=== PATIENT | female | born 1955 | race Caucasian/White ===

== ENCOUNTER 2022-02-14 13:30 | Outpatient (CLI) | payer MEDICARE, SELFPAY ==
--- NOTE | 2022-02-14 13:45 | MR_ITS ---
[facility] [address] [facility] [address] Phone:?[phone] Fax:?[phone] Referring Physician Information: Yara Gonzalez [address] [facility] [address] Phone:?[phone] Fax:?[phone] Patient:Aram Chandler D.O.B:?1955 Sex:?Female Phone:?[phone] [facility] MRN:?[id number] Exam Date:?02/14/2022 ? EXAM: MRI OF THE LEFT SHOULDER CLINICAL INFORMATION: The patient is a 66-year-old with left shoulder pain. Evaluate for subscapularis injury. PRIOR SURGERY: None reported. COMPARISON STUDIES: There are no prior studies available for comparison. TECHNICAL INFORMATION: Using a 1.5T MR scanner and a localizing shoulder surface coil: 3.0 mm?coronal obliques: PD, T2, STIR 3.0 mm?sagittal obliques: PD, T2 3.0 mm?axials: PD, T2 FINDINGS: Articular/Extraarticular collections: Effusion: Mild. Subacromial/subdeltoid: Mild fluid is seen within the subacromial/subdeltoid bursa, in keeping with mild bursitis. Subcoracoid: No evidence for bursitis. Osseous structures: Proximal humerus: No evidence for bony injury to the proximal humerus can be seen. There is no evidence for greater tuberosity fracture. No Hill-Sachs or reverse Hill-Sachs deformity is seen. Glenoid: No acute bony abnormality of the glenoid fossa or glenoid neck can be seen. Acromioclavicular joint: Mild acromioclavicular joint arthrosis is present. Coracoacromial arch: Acromion morphology: Type II. No evidence for os acromiale. Acromiohumeral space: Moderately narrowed. Coracohumeral space: Within normal limits. Rotator cuff and deltoid: Supraspinatus: Mild to moderate changes of supraspinatus tendinosis can be seen. There is no evidence for full or partial-thickness tearing. No atrophic changes of the supraspinatus muscle belly are identified. Infraspinatus: No evidence for tendinosis, tearing, or associated muscle belly atrophy. Teres minor: No evidence for tendinosis, tearing, or associated muscle belly atrophy. Subscapularis: Mild to moderate subscapularis tendinosis can be seen. There is no evidence for full or partial-thickness tearing. No atrophic changes of the subscapularis muscle belly are noted. Deltoid: No evidence for strain or tearing. Biceps tendon: The intra-articular and biceps sulcus portions of the biceps tendon are normal. There is no evidence for rupture, dislocation, or subluxation. Glenohumeral joint and labrum: Articular Cartilage: Chondromalacia and chondral thinning along the articular surfaces of the glenohumeral articulation can be seen. No definite osteoarthritic changes are present. Labrum: Degeneration, blunting, and irregularity of the glenoid labrum can be seen without definite areas of more well-defined tearing. Capsular Soft Tissues: No definite capsular abnormalities of the glenohumeral joint are seen. No evidence for capsular tearing is present and there are no MR signs of adhesive capsulitis. CONCLUSION: 1. Mild to moderate supraspinatus and subscapularis tendinosis. No full or partial-thickness rotator cuff tearing is seen. 2. Mild acromioclavicular joint arthrosis with moderate narrowing of the acromiohumeral space. 3. Chondromalacia and chondral thinning along the articular surfaces of the glenohumeral articulation without definite osteoarthritic change. 4. Degeneration, blunting, and irregularity of the glenoid labrum. 5. The long head of the biceps tendon appears intact. 6. Mild glenohumeral joint effusion and mild subacromial/subdeltoid bursitis. AEC Electronically signed on 02/14/2022 4:47:00 PM by Erik Khan M.D.
== END 2022-02-14 13:31 | disposition home or self-care (01) ==
LOC: MRI 13:31
PROVIDERS: PCP Family Medicine; Visit Provider Physician Assistant Surgical
DX: M25.512 Pain in left shoulder (principal); M94.212 Chondromalacia, left shoulder; M19.012 Primary osteoarthritis, left shoulder; M25.412 Effusion, left shoulder
CPT/HCPCS: 73221

== ENCOUNTER 2022-04-07 10:30 | Outpatient (RCR) | payer MEDICARE, SELFPAY ==
--- NOTE | 2022-02-26 15:35 | PT.OPEX ---
PT [place] Outpatient Eval PT [facility] Outpatient Eval Start: 02/26/22 14:39 Freq: Status: Active Protocol: Document 02/26/22 14:39 NMK (Rec: 02/26/22 15:31 NMK [id number]) E-signed By Hao Haley DPT Physical Therapy Outpatient Evaluation Insurance Information Recert Due Date 05/29/22 Insurance Name [employer] Medical Diagnosis Unspecified disorder of synovium and tendon, left shoulder Treating Diagnosis L shoulder pain; Decreased L shoulder ROM; L shoulder weakness Referring Bill Prince PA-C Subjective Subjective 66 y.o. female pt present with primary c/o L shoulder pain that seemed to have started back in August after carrying her grand child for long distance. Pain seemed to have improved a little bit but came back in January when once again she was doing some heavy lifting. She reports pain with reaching with outstretched arm as well driving. She has difficulty lifting things as well. She does report she feels the shoulder is slowly getting better. Often times she has help lifting things, particularly her grand kids. Sleeping was difficult but has been getting easier. She did get an MRI which revealed tendinopathy of her supraspinatus and subscapularis muscles. Her goal is to improve her pain and ROM, and to be able to lift her grandchildren again without pain. PMH: Cancer Current Work Status Retired Precautions Treatment Precautions/Contraindications h/o Cancer Therapy Limitations/Systems Review Not Limited Objective Other/Pertinent Objective MMT: L/R Shoulder flexion: 4*/5 Shoulder abduction: 3-*/5 Shoulder 90-90 ER: 3*/5 Shoulder 90-90 IR: 4*/5 Shoulder ER: 4+/5 Shoulder IR: 4/5 *Indicates pain with resisted testing ROM Shoulder flexion L: 135 degrees R: 150+ Shoulder abduction L: 77 degrees R: 150 + Shoulder IR: L: Sacral level R: T10 Shoulder ER: L: Inferior occiput R: T7 Palpation: TTP present over subscapularis tendon Special tests Full can: + on L Empty can: + on L External rotation resistance test: + on L Neer's: + on L Assessment Assessment/Impression Findings are consistent with a diagnosis of L mechanical shoulder pain with signs and symptoms consistent with RC tendinopathy. Impairments related to current health condition include decreased shoulder ROM, shoulder pain, and shoulder weakness. These impairments contribute to decreased ability to perform ADL's involving reaching and lifting, and reduced ability to care and play for her grandchildren due to being unable to lift them secondary to shoulder pain. Examination of body systems including structures, functions, activity limitations and participation restrictions have been addressed. Skilled PT is recommended in order to improve the patient's mobility and restore their baseline level of function. Within session patient tolerating isometric strengthening of her cuff along with scapular strengthening without any reports of increased pain. Primary Functional Limitations Reaching, lifting Plan of Care Rehabilitation Potential Good Physical Therapy Goals Prior to discharge from PT... 1. Pt will demonstrate shoulder active range of motion >150 degrees in involved upper extremity in order to show functional ability to reach into cabinets at home 2. Pt will demonstrate ability to lift 15 pounds from floor during therapy with good body mechanics and report less 2/10 shoulder pain when doing so to show ability to lift and play with her grandchildren 3. Pt will demonstrate at least 150 degrees of shoulder abduction ROM in her L shoulder and report less than 3/10 pain throughout the arc 4. Pt will be independent in HEP in order to show ability to self manage condition after discharge Coordination/Communication With Referral Source Treatment Plan/Direct Interventions Joint Mobilization,Manual Therapy,Therapeutic Exercises Frequency/Duration 1-2x per week for 8-12 weeks Patient Will Be Discharged From Therapy Completion of LTG(s),Skills Plateau,Independent w/HEP, Independently Progressing Evaluation Billing Untimed Code Treatment Minutes 20 Complexity Moderate Certification Information Initial Certification Date 02/26/22 Ending Certification Date 05/29/22 Physician Comment/Change Comment or Changes Physician NPI Number #
== END 2023-01-22 23:59 | disposition home or self-care (01) ==
PROVIDERS: PCP Family Medicine; Visit Provider Physician Assistant Surgical
DX: M67.912 Unspecified disorder of synovium and tendon, left shoulder (principal); Z51.89 Encounter for other specified aftercare
CPT/HCPCS: 97110; 97140; 97162

== ENCOUNTER 2022-12-02 10:16 | Outpatient (CLI) | payer MEDICARE, SELFPAY | END 2022-12-02 10:17 | disposition home or self-care (01) | LOC: NFLDREF 10:17 | PROVIDERS: PCP Family Medicine; Visit Provider Family Medicine | DX: N39.0 Urinary tract infection, site not specified (principal) | CPT/HCPCS: 87086 ==

== ENCOUNTER 2023-02-25 11:00 | Outpatient (RCR) | payer MEDICARE, SELFPAY | END 2023-06-25 23:59 | disposition home or self-care (01) | PROVIDERS: PCP Family Medicine; Visit Provider Nurse Practitioner Family | DX: N94.89 Other specified conditions associated with female genital organs and menstrual cycle (principal); R27.8 Other lack of coordination; N94.2 Vaginismus; Z51.89 Encounter for other specified aftercare | CPT/HCPCS: 97110; 97112; 97140; 97161; 97535 ==

== ENCOUNTER 2023-03-01 09:35 | Emergency (ER) | payer MEDICARE, SELFPAY ==
[2023-03-01 09:55] VITALS: BP 195/103; PULSE 73; RESP 18; TEMP 36; O2SAT 100; BMI 20.7
--- NOTE | 2023-03-01 10:35 | CRLHL7_ITS ---
For Patients: As a result of the Century Cures Act, medical imaging exams and procedure reports are released immediately into your electronic medical record. You may view this report before your referring provider. If you have questions, please contact your health care provider. INDICATION: Headache, hypertension TECHNIQUE: CT of the head without contrast. Coronal and sagittal reformats. Bone and soft tissue algorithms. COMPARISON: 06/30/19 CT FINDINGS: No acute intracranial hemorrhage or extraaxial collection. No evidence of acute cortical infarction. No mass effect or midline shift. Mild generalized cerebral and cerebellar parenchymal volume loss. Mild regions of decreased attenuation within the periventricular and subcortical white matter of both cerebral hemispheres most likely reflects chronic microvascular ischemic disease and age related change in this patient. Vascular calcifications within the carotid siphons. Orbital contents are normal. No calvarial fractures. No lytic or sclerotic osseous lesions within the calvarium or skull base. Scalp and other imaged soft tissue structures are normal. Mastoid air cells are clear. IMPRESSION: No acute intracranial abnormality. Please note that all CT scans at this facility use dose modulation, iterative reconstruction, and/or weight-based dosing when appropriate to reduce radiation dose to as low as reasonably achievable. Dictated by Jairo Guerrero MD @ 03/01/2023 12:00:28 PM (Electronically Signed)
--- NOTE | 2023-03-01 10:38 | ED_ITS ---
HPI - General Adult General Chief complaint: Hypertension Stated complaint: aneurysm and Hypertension Time Seen by Provider: 03/01/23 10:14 History of Present Illness HPI narrative: Patient is a 59 year white female who was seen recently for not feeling well, elevated blood pressure and a headache. 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 There was no Vet large vessel occlusion. The patient has been quite anxious as her blood pressure was elevated and she was concerned this might cause rupture of the aneurysm. She presents to the ED here for treatment. She was to get in contact with Neurology early in the week. She has a blood pressure log that she has capped and she is in the 150-160 range systolic for quite some time. She reports she is very anxious about the situation and has been troubled with anxiety. She reports this started when she was out doing some clipping for a couple of hours in her yd and then felt like ?her blood pressure was elevated ?. Patient denies chest pain, or fevers, or shortness of breath. Related Data Home Medications Medication Instructions Recorded Confirmed Lactobacillus acidophilus 10 mg PO QDAY 02/07/22 05/09/22 (Acidophilus capsule) cholecalciferol (vitamin D3) 25 25 mcg PO QDAY 02/07/22 05/09/22 mcg (1,000 unit) capsule (Vitamin D3) vitamin B complex 1 tab PO QDAY 02/07/22 05/09/22 Previous Rx's Medication Instructions Recorded metoprolol succinate 25 mg 25 mg PO DAILY #14 tabs 03/01/23 tablet,extended release 24 hr Allergies Allergy/AdvReac Type Severity Reaction Status Date / Time No Known Allergies Allergy Unknown Verified 12/02/22 10:57 Review of Systems Status of ROS: Reports: 6 or more systems reviewed and unremarkable except as noted in History and below [facility] Medical History History of tenosynovitis (04/2017) ?Z87.39 - Personal history of other diseases of the musculoskeletal system and connective tissue (ICD-10) History of malignant neoplasm of cervix (02/2013) ?Z85.41 - Personal history of malignant neoplasm of cervix uteri (ICD-10) Surgical History History of breast augmentation (09/17/94) ?Z98.82 - Breast implant status (ICD-10) History of hysterectomy ?Z90.710 - Acquired absence of both cervix and uterus (ICD-10) Family History Mother Pancreatic cancer, Onset Age: 69 Father Stomach cancer, Onset Age: 47 Sister Breast cancer Maternal Grandmother Stroke Social History Narrative: , 2 kids, paraprofessional, non-smoker, no EtOH Smoking Status: Never smoker Do you use any of these nicotine containing products: None Second hand tobacco smoke exposure: No How often do you have a drink containing alcohol: never AUDIT-C Alcohol total score: 0 Non-prescribed substance use: denies use Are you now , , , , never or living with a partner: Social isolation score (0-1 are the most socially isolated patients): 1 Exam Narrative: Exam Narrative: Objective: Patient's vital signs show blood pressure 195/103 pulse 73 and regular resp rate 18 unlabored afebrile O2 sat 100% In general mildly anxious no apparent distress HEENT unremarkable pupils react to light, extra movements intact, no facial asymmetry Neurologic is grossly nonfocal Pulses regular Const: Vital Signs, click to edit/add: Vital Signs - 24 hr 03/01/23 09:55 03/01/23 11:44 03/01/23 11:45 Temperature 96.8 F L Pulse Rate 48 L 45 L Pulse Rate [Right Pulse Oximeter] 73 Respiratory Rate 18 Blood Pressure 145/106 H Blood Pressure [Ri ght Upper Arm] 195/103 H Pulse Oximetry 100 97 97 Oxygen Delivery Me thod Room Air 03/01/23 12:00 03/01/23 12:02 Temperature Pulse Rate 53 L 49 L Pulse Rate [Right Pulse Oximeter] Respiratory Rate Blood Pressure 135/77 Blood Pressure [Ri ght Upper Arm] Pulse Oximetry 96 96 Oxygen Delivery Me thod Course Vital Signs Vital signs: Initial Vital Signs Temperature 96.8 F L 03/01/23 09:55 Temperature Source Temporal Artery Scan 03/01/23 09:55 Pulse Rate 73 03/01/23 09:55 Respiratory Rate 18 03/01/23 09:55 Blood Pressure 195/103 H 03/01/23 09:55 Blood Pressure Mean 133 H 03/01/23 09:55 Blood Pressure Position Sitting 03/01/23 09:55 Pulse Oximetry 100 03/01/23 09:55 Oxygen Delivery Method Room Air 03/01/23 09:55 Vital Signs Temperature 96.8 F L 03/01/23 09:55 Pulse Rate 73 03/01/23 09:55 Respiratory Rate 18 03/01/23 09:55 Blood Pressure 195/103 H 03/01/23 09:55 Pulse Oximetry 100 03/01/23 09:55 Oxygen Delivery Method Room Air 03/01/23 09:55 Temperature 96.8 F L 03/01/23 09:55 Pulse Rate 49 L 03/01/23 12:02 Respiratory Rate 18 03/01/23 09:55 Blood Pressure 135/77 03/01/23 12:02 Pulse Oximetry 96 03/01/23 12:02 Oxygen Delivery Method Room Air 03/01/23 09:55 Medical Decision Making MDM Narrative Medical decision making narrative: Patient is a 59-year-old white female with a history of exertional strain likely to her neck probable tension headache. Patient had a noted 2.5 mm left superior hypo foot seal artery aneurysm. Given her blood pressure and tension type headache I think could be appropriate to treat her with some Reglan Benadryl Ativan and IV fluid. We will get a repeat head CT to make sure she has no bleeding or other abnormality noted now. She has had this headache now for few days and it seems like it started when she was doing some yd work and sounds more like a tension type headache that radiates from her neck area to occipital region. Does not have any focal neurologic complaints. I think giving her so mething for blood pressure such as metoprolol given her blood pressure is elevated be appropriate, and follow-up with neurology as scheduled 1st tests are normal. She had her comfortable this plan. Lab Data Labs: Lab Results 03/01/23 Range/Units 10:40 WBC 6.30 (4.50-11.00) K/uL RBC 5.21 H (4.00-5.20) m/uL Hgb 9.5 L (12.0-16.0) gm/dL Hct 32.0 L (33.0-51.0) % MCV 61 L (80-100) fL MCH 18 L (26-34) pg MCHC 30 L (32-36) gm/dL RDW Coeff of Erin 16.6 H (11.5-15.5) % Plt Count 350 (140-440) K/uL Neut % (Auto) 67.1 (42.0-72.0) % Lymph % (Auto) 25.7 (20-44) % [place] % (Auto) 5.1 (0.0-11.0) % Eos % (Auto) 1.0 (0.0-7.0) % Baso % (Auto) 0.6 (0.0-3.0) % Neut # (Auto) 4.23 (1.7-7.0) K/uL Lymph # (Auto) 1.62 (0.90-2.90) K/uL [place] # (Auto) 0.30 (0.00-0.90) K/UL Eos # (Auto) 0.06 (0.00-0.50) K/uL Baso # (Auto) 0.04 (0.00-0.30) K/uL Abs Immat Gran (auto) 0.03 (0.00-0.30) K/uL Imm/Tot Granulo (auto) 0.5 % Diff Slide Review Acceptable Review (Acceptable) Sodium 144 (135-149) mmol/L Potassium 3.6 (3.6-5.1) mmol/L Chloride 109 (96-114) mmol/L Carbon Dioxide 27 (20-32) mmol/L Anion Gap 8 (7-15) mEq/L BUN 11 (7-30) mg/dL Creatinine 0.8 (0.5-1.5) mg/dL Estimated Creat Clear 42.59 Estimated GFR 80 ml/min Glucose 90 (60-115) mg/dL Calcium 8.9 (8.4-10.6) mg/dL C-Reactive Protein < 0.5 L (0.5-1.0) mg/dL Discharge Plan Discharge Clinical Impression: Elevated blood pressure reading, Headache Patient Disposition: Home w/ Parent or Adult Condition: Improved Additional Instructions: May use metoprolol daily starting tomorrow, light activity, recheck with regular doctor in 2-3 days for repeat blood pressure and pulse check. Recommend follow- up with Neurology as you have planned. Return as needed Activity Level: Light activity Discharge Diet: Heart Healthy (2 gm sodium, low fat) Prescriptions: New metoprolol succinate 25 mg tablet extended release 24 hr 25 mg PO DAILY Qty: 14 2RF No Action cholecalciferol (vitamin D3) [Vitamin D3] 25 mcg (1,000 unit) capsule 25 mcg PO QDAY vitamin B complex Tablet 1 tab PO QDAY Acidophilus Capsule 10 mg PO QDAY Follow Up/Referrals: Jiaro De Los Santos MD [Primary Care Provider] - Stand Alone Forms: [facility] Info Instructions
[2023-03-01] MEDS: 0.9 % SODIUM CHLORIDE 1000 ml 1,000 ML 6000 ML IV (10:54)
[2023-03-01] MEDS: LORazepam 2 MG/ML inj 0.5 MG IVP (10:58)
[2023-03-01 11:00] LABS: Basophils Absolute Auto 0.04 K/uL (0.00-0.30); Basophils Percent Auto 0.6 % (0.0-3.0); Eosinophils Absolute Auto 0.06 K/uL (0.00-0.50); Hemoglobin* 9.5 gm/dL (12.0-16.0); Immature Granulocytes Abs Auto 0.03 K/uL (0.00-0.30); Immature Granulocytes Pct Auto 0.5 %; Lymphocytes Absolute Auto 1.62 K/uL (0.90-2.90); Lymphocytes Percent Auto 25.7 % (20-44); Mean Corpuscular HGB Conc 30 gm/dL (32-36); Mean Corpuscular Hemoglobin 18 pg (26-34); Mean Corpuscular Volume 61 fL (80-100); Monocytes Percent Auto 5.1 % (0.0-11.0); Neutrophils Absolute Auto 4.23 K/uL (1.7-7.0); Neutrophils Percent Auto 67.1 % (42.0-72.0); Platelet Count* 350 K/uL (140-440); RDW Coefficient of Variation % 16.6 % (11.5-15.5); Red Blood Count 5.21 m/uL (4.00-5.20)
[2023-03-01] MEDS: diphenhydrAMINE 50 MG/ML inj 25 MG IVP (11:00)
[2023-03-01] MEDS: METOCLOPRAMIDE HCL 10 MG in 0.9 % SODIUM CHLORIDE 100 ml 100 ML 306 MG IV (11:05)
[2023-03-01] MEDS: METOPROLOL TARTRATE 25 MG TABLET PO (11:05)
[2023-03-01 11:13] LABS: Slide Review Acceptable Review (Acceptable); Slide Review Reflex Yes
[2023-03-01 11:16] LABS: Chloride* 109 mmol/L (96-114); Potassium* 3.6 mmol/L (3.6-5.1); Sodium* 144 mmol/L (135-149)
[2023-03-01 11:19] LABS: Creatinine* 0.8 mg/dL (0.5-1.5); Est. Creatinine Clearance* 42.59; Estimated Glomerular Filt Rate 80 ml/min
[2023-03-01 11:20] LABS: Anion Gap 8 mEq/L (7-15); Blood Urea Nitrogen* 11 mg/dL (7-30); Calcium* 8.9 mg/dL (8.4-10.6); Carbon Dioxide* 27 mmol/L (20-32); Glucose* 90 mg/dL (60-115)
[2023-03-01 11:33] LABS: C Reactive Protein* < 0.5 mg/dL (0.5-1.0)
[2023-03-01 11:44] VITALS: BP 145/106; PULSE 48; O2SAT 97
[2023-03-01 11:45] VITALS: PULSE 45; O2SAT 97
[2023-03-01 12:00] VITALS: PULSE 53; O2SAT 96
[2023-03-01 12:02] VITALS: BP 135/77; PULSE 49; O2SAT 96
== END 2023-03-01 12:32 | disposition home or self-care (01) ==
PROVIDERS: Emergency Provider Family Medicine; PCP Family Medicine
DX: R51.9 Headache, unspecified (principal); R03.0 Elevated blood-pressure reading, without diagnosis of hypertension
CPT/HCPCS: 36415; 70450; 80048; 85025; 86140; 96361; 96374; 96375; 99284; 99285; A9270; J1200; J2060; J2765; J7030

== ENCOUNTER 2023-08-11 09:01 | Outpatient (CLI) | payer MEDICARE, SELFPAY | END 2023-08-11 09:02 | disposition home or self-care (01) | LOC: NFLDREF 08-12 11:29 | PROVIDERS: PCP Family Medicine; Referring Provider Family Medicine; Visit Provider Registered Nurse | DX: R30.0 Dysuria (principal) | CPT/HCPCS: 87086 ==

== ENCOUNTER 2024-04-16 18:35 | Emergency (ER) | payer MEDICARE, SELFPAY ==
[2024-04-16 18:39] VITALS: BP 145/78; PULSE 69; RESP 18; TEMP 36.5; O2SAT 100; BMI 18.7
--- NOTE | 2024-04-16 18:52 | ED_ITS ---
HPI - General Adult General Time Seen by Provider: 18:52 Date Seen: 04/16/24 Chief complaint: Back Injury/Pain Stated complaint: fall - back pain Time Seen by Provider: 04/16/24 18:37 Source: patient and RN notes reviewed Mode of arrival: ambulatory Limitations: no limitations History of Present Illness HPI narrative: This 6-year-old female is coming in with complaint of left back pain after injury as well as some chest patent on her flight home. She flew home from the [facility] today; while in airport at the [facility], her suitcase got caught and she fell into the turn stand or the suitcase, not completely sure but she hit her left posterolateral chest wall, points to the left lower rib area on her back. There is some visible red betancourt as well as some bruising in the area. It hurts on the side in it hurts to take a deep breath. On the flight home from the [facility] she did note some right-sided chest pain that went into her right shoulder. When she fell, her chest wall hurts significantly, felt as if someone was stabbing her in the chest when she felt lightheaded at the time. No fevers or chills. No noted prior history of cardiac disease or blood clotting disorders. She came off a cruise around 8 in the morning, thinks this incident happened around 9:00 a.m. where she fell. She is taken 1000 mg of Tylenol this morning, another 500 mg during the flight. She just proceeded to come from [facility] to the ER here on arrival back home. She does live in [place]. There is no known family history of blood clots or cardiac disease that she remembers. Related Data Home Medications ?Medication ?Instructions ?Recorded ?Confirmed Lactobacillus acidophilus 10 mg PO QDAY 02/07/22 04/16/24 (Acidophilus capsule) lisinopril 40 mg tablet 40 mg PO DAILY 08/11/23 04/16/24 amlodipine 5 mg tablet 5 mg PO DAILY 04/16/24 04/16/24 Allergies Allergy/AdvReac Type Severity Reaction Status Date / Time No Known Allergies Allergy Unknown Verified 04/16/24 18:51 Review of Systems Status of ROS: Reports: 6 or more systems reviewed and unremarkable except as noted in History and below [facility] Medical History History of tenosynovitis (04/2017) ?Z87.39 - Personal history of other diseases of the musculoskeletal system and connective tissue (ICD-10) History of malignant neoplasm of 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/2013) ?Z85.41 - Personal history of malignant neoplasm of cervix uteri (ICD-10) Surgical History History of breast augmentation (09/17/94) ?Z98.82 - Breast implant status (ICD-10) History of hysterectomy ?Z90.710 - Acquired absence of both cervix and uterus (ICD-10) Family History Mother Pancreatic cancer, Onset Age: 69 Father Stomach cancer, Onset Age: 47 Sister Breast cancer Maternal Grandmother Stroke Social History Narrative: , 2 kids, paraprofessional, non-smoker, no EtOH Smoking Status: Never smoker Do you use any of these nicotine containing products: None Second hand tobacco smoke exposure: No How often do you have a drink containing alcohol: never AUDIT-C Alcohol total score: 0 Non-prescribed substance use: denies use Are you now , , , , never or living with a partner: Social isolation score (0-1 are the most socially isolated patients): 1 Exam Const: Vital Signs, click to edit/add: Vital Signs - 24 hr 04/16/24 18:39 04/16/24 20:00 04/16/24 20:49 Temperature 97.7 F 97.7 F Pulse Rate [Pulse Oximeter] 69 74 Respiratory Rate 18 18 Blood Pressure [Ri ght Upper Arm] 145/78 H 132/74 Pulse Oximetry 100 97 97 Oxygen Delivery Me thod Room Air Room Air This 69-year-old female is alert, interactive, no apparent distress. She standing in the room when I come in. Her gait is normal but movement about the torso definitely seems to cause pain. She points to her left lower flank/lower rib area where the pain is. There is a visible erythematous trudi on her left mid posterior lower rib area with some surrounding ecchymosis. It is tender on palpation but there is no step-off. Face atraumatic, sclera clear, pupils equal round, symmetrical facial function. Able to speak in complete sentences. Lungs are clear, good air entry, no wheezing or crackles, no tachypnea. CV regular rate and rhythm, no murmur, normal S1-S2, no S3-S4. Abdomen is soft, nondistended, surprisingly some very high epigastric tenderness but no rebound or guarding, no underlying masses or organomegaly noted. No lower extremity edema. Documenting provider has reviewed patient's vital signs: yes Course Course ED Course: She has left posterolateral chest wall trauma along the posterior ribs. She also is complaining of some chest pain while flying, did fly to the [facility] a week ago and returned today. Her chest pain could be posttraumatic but she has also had a flight. I think imaging with chest CT is most appropriate, if we are imaging with chest CT will do chest CT PE protocol from the start. She is not hypoxic, hemodynamically stable, doubt internal bleeding at this time. Will also consider cardiac disease with episode of chest pain in flight. Will look at full complement of labs including troponin as well as an EKG. She will be monitored while in the ED. did discuss further pain management with patient, did not seem very keen on this, did offer single dose of Toradol which is nonnarcotic which she did want to try. Ordered 15 mg IVP. Reevaluation(s) Time of Reevaluation #1: 21:09 Reevaluation #1: Reviewed with patient that her CT is not showing any acute traumatic change. She does have a nonobstructing left kidney stone which we did review, provided her a copy of her results. Reviewed that her sodium was mildly low 130, would recommend recheck of this within the next 1-2 weeks. Will provider handout on hyponatremia as well. She has contusion in her left posterior chest wall but no evidence of any rib fractures, no traumatic change. Her troponin and her chest CT are not showing any evidence of cardiac involvement with ischemic disease or any pulmonary embolism. Vital Signs Vital signs: Initial Vital Signs Temperature 97.7 F 04/16/24 18:39 Temperature Source Temporal Artery Scan 04/16/24 18:39 Pulse Rate 69 04/16/24 18:39 Respiratory Rate 18 04/16/24 18:39 Blood Pressure 145/78 H 04/16/24 18:39 Blood Pressure Mean 100 04/16/24 18:39 Blood Pressure Position Sitting 04/16/24 18:39 Pulse Oximetry 100 04/16/24 18:39 Oxygen Delivery Method Room Air 04/16/24 18:39 Vital Signs Temperature 97.7 F 04/16/24 18:39 Pulse Rate 69 04/16/24 18:39 Respiratory Rate 18 04/16/24 18:39 Blood Pressure 145/78 H 04/16/24 18:39 Pulse Oximetry 100 04/16/24 18:39 Oxygen Delivery Method Room Air 04/16/24 18:39 Temperature 97.7 F 04/16/24 20:49 Pulse Rate 74 04/16/24 20:49 Respiratory Rate 18 04/16/24 20:49 Blood Pressure 132/74 04/16/24 20:49 Pulse Oximetry 97 04/16/24 20:49 Oxygen Delivery Method Room Air 04/16/24 20:49 Medications Administered Medications: Discontinued Medications Generic Name Dose Route Start Last Admin Trade Name Freq PRN Reason Stop Dose Admin Ketorolac Tromethamine 15 mg 04/16/24 19:17 04/16/24 19:25 Ketorolac 15 Mg/Ml Inj IVP 04/16/24 19:18 15 mg ONCE ONE Administration Medical Decision Making Lab Data Lab results reviewed: Yes I reviewed the patient's lab results Labs: Lab Results 04/16/24 04/16/24 Range/Units 19:05 19:17 WBC 8.03 (4.50-11.00) K/uL RBC 4.67 (4.00-5.20) m/uL Hgb 8.6 L (12.0-16.0) gm/dL Hct 27.8 L (33.0-51.0) % MCV 60 L (80-100) fL MCH 18 L (26-34) pg MCHC 31 L (32-36) gm/dL RDW Coeff of Erin 15.7 H (11.5-15.5) % Plt Count 280 (140-440) K/uL Neut % (Auto) 74.3 H (42.0-72.0) % Lymph % (Auto) 20.3 (20-44) % Rich % (Auto) 4.6 (0.0-11.0) % Eos % (Auto) 0.4 (0.0-7.0) % Baso % (Auto) 0.2 (0.0-3.0) % Neut # (Auto) 6.00 (1.7-7.0) K/uL Lymph # (Auto) 1.63 (0.90-2.90) K/uL Rich # (Auto) 0.40 (0.00-0.90) K/UL Eos # (Auto) 0.03 (0.00-0.50) K/uL Baso # (Auto) 0.02 (0.00-0.30) K/uL Abs Immat Gran (auto) 0.02 (0.00-0.30) K/uL Imm/Tot Granulo (auto) 0.2 % D-Dimer Quant (PE/DVT) 1.64 H (0.00-0.50) ug/ml Sodium 130 L (135-149) mmol/L Potassium 4.3 (3.6-5.1) mmol/L Chloride 97 (96-114) mmol/L Carbon Dioxide 20 (20-32) mmol/L Anion Gap 13 (7-15) mEq/L BUN 27 (7-30) mg/dL Creatinine 1.0 (0.5-1.5) mg/dL Estimated Creat Clear 38.23 Estimated GFR 61 ml/min Glucose 105 (60-115) mg/dL Calcium 9.4 (8.4-10.6) mg/dL Total Bilirubin 0.7 (0.1-1.5) mg/dL AST 23 (12-35) U/L ALT 13 (4-35) U/L Alkaline Phosphatase 63 (40-150) U/L Troponin I < 0.01 L (0.01-0.04) ng/mL C-Reactive Protein < 0.5 L (0.5-1.0) mg/dL NT-Pro-B Natriuret Pep 66 pg/mL Total Protein 7.7 (6.0-8.3) g/dL Albumin 4.8 (3.3-5.0) g/dL Lipase 112 (23-300) U/L Lab Acknowledgement Test Added POC Creatinine 1.1 (0.6-1.3) mg/dl POC Troponin I 0.00 L (0.01-0.04) ng/ml Imaging Data CT scan - chest: Attestation: I have reviewed the pertinent imaging results. Radiologist's impression: Patient: WILBUR PHAM Facility:?[facility] Patient ID:?[id number] Site Patient ID:?[id number]. Site :?[id number] Study:?CT-Chest Angio W/95CC [id number] 7:50:57 PM Ordering Physician:?Elizabeth Etienne Final Report: Indication: Chest pain after flight Technique: CTA of the chest following 95 mL Isovue 370 IV contrast. Comparison: None Findings: Pulmonary arteries: No pulmonary embolism appreciated. Lungs: No consolidation. No effusion. No pneumothorax. Trace basilar atelectasis and/or scarring. Mediastinum: No acute abnormality appreciated. Lymph nodes: No gross lymphadenopathy. Upper abdomen: Nonobstructing punctate left renal stone. Soft tissues: No acute abnormality appreciated. Bones: No acute abnormality appreciated. Impression: 1. No pulmonary embolism or other acute abnormality appreciated to account for patient`s reported symptoms. 2. Nonobstructing punctate left renal stone. Please note that all CT scans at this facility use dose modulation, iterative reconstruction, and/or weight-based dosing when appropriate to reduce radiation dose to as low as reasonably achievable. Dictated by Shai Navas MD @ 04/16/2024 8:41:32 PM (Electronic Signature) ECG Data Attestation: I personally reviewed and interpreted this ECG as follows: (Normal sinus rhythm, 66 beats per minute. Nonspecific T-wave abnormality but no acute ST segment changes. No infarct noted.) Prior ECG tracings: not available for review Discharge Plan Discharge Clinical Impression: Hyponatremia Contusion of back wall of thorax Qualifiers: Encounter type: initial encounter Thoracic wall location detail: left Qualified Code(s): S20.222A - Contusion of left back wall of thorax, initial encounter Chest pain Qualifiers: Chest pain type: unspecified Qualified Code(s): R07.9 - Chest pain, unspecified Patient Disposition: Home, Self-Care Condition: Stable Instructions: Chest Pain (ED), Hyponatremia (ED), Chest Wall Pain (ED), Rib Contusion (ED) Additional Instructions: Recommend follow up in clinic within the next couple of weeks, do recommend having your sodium rechecked at follow-up. Use Tylenol 1000 mg up to 3 times a day as needed for chest wall discomfort, may need to ice chest wall as well to help decrease pain and swelling. There is no evidence of pulmonary emboli, no evidence of fracture or traumatic change, no elevation of your heart enzyme suggestive of any ischemia today. Review handout on hyponatremia in the interim and try a to follow some of the suggestions. If you have further concerns, are having increased difficulty breathing, increased chest pain, further concerns, do recommend further evaluation. Presumably your chest discomfort had to do with the fall but do recommend discussing potential cardiac stress test with your primary provider when you follow-up. Activity Level: Activity as Tolerated Prescriptions: No Action lisinopril 40 mg tablet 40 mg PO DAILY Acidophilus Capsule 10 mg PO QDAY amlodipine 5 mg tablet 5 mg PO DAILY Follow Up/Referrals: Jairo De Los Santos MD [Primary Care Provider] - Stand Alone Forms: Second Light Info Instructions
--- NOTE | 2024-04-16 18:58 | CRLHL7_ITS ---
For Patients: As a result of the Century Cures Act, medical imaging exams and procedure reports are released immediately into your electronic medical record. You may view this report before your referring provider. If you have questions, please contact your health care provider. Indication: Chest pain after flight Technique: CTA of the chest following 95 mL Isovue 370 IV contrast. Comparison: None Findings: Pulmonary arteries: No pulmonary embolism appreciated. Lungs: No consolidation. No effusion. No pneumothorax. Trace basilar atelectasis and/or scarring. Mediastinum: No acute abnormality appreciated. Lymph nodes: No gross lymphadenopathy. Upper abdomen: Nonobstructing punctate left renal stone. Soft tissues: No acute abnormality appreciated. Bones: No acute abnormality appreciated. Impression: 1. No pulmonary embolism or other acute abnormality appreciated to account for patient`s reported symptoms. 2. Nonobstructing punctate left renal stone. Please note that all CT scans at this facility use dose modulation, iterative reconstruction, and/or weight-based dosing when appropriate to reduce radiation dose to as low as reasonably achievable. Dictated by Shai Navas MD @ 04/16/2024 8:41:32 PM (Electronically Signed)
[2024-04-16 19:14] LABS: Basophils Absolute Auto 0.02 K/uL (0.00-0.30); Basophils Percent Auto 0.2 % (0.0-3.0); Eosinophils Absolute Auto 0.03 K/uL (0.00-0.50); Eosinophils Percent Auto 0.4 % (0.0-7.0); Hematocrit 27.8 % (33.0-51.0); Hemoglobin* 8.6 gm/dL (12.0-16.0); Immature Granulocytes Abs Auto 0.02 K/uL (0.00-0.30); Immature Granulocytes Pct Auto 0.2 %; Lymphocytes Absolute Auto 1.63 K/uL (0.90-2.90); Lymphocytes Percent Auto 20.3 % (20-44); Mean Corpuscular HGB Conc 31 gm/dL (32-36); Mean Corpuscular Hemoglobin 18 pg (26-34); Mean Corpuscular Volume 60 fL (80-100); Monocytes Percent Auto 4.6 % (0.0-11.0); Neutrophils Percent Auto 74.3 % (42.0-72.0); Platelet Count* 280 K/uL (140-440); RDW Coefficient of Variation % 15.7 % (11.5-15.5); Red Blood Count 4.67 m/uL (4.00-5.20); White Blood Count* 8.03 K/uL (4.50-11.00)
[2024-04-16 19:15] LABS: Creatinine, Point-of-Care* 1.1 mg/dl (0.6-1.3)
[2024-04-16] MEDS: KETOROLAC 15 MG/ML inj IVP (19:25)
[2024-04-16 19:33] LABS: Albumin* 4.8 g/dL (3.3-5.0); Chloride* 97 mmol/L (96-114)
[2024-04-16 19:34] LABS: Potassium* 4.3 mmol/L (3.6-5.1); Sodium* 130 mmol/L (135-149)
[2024-04-16 19:36] LABS: Bilirubin Total* 0.7 mg/dL (0.1-1.5); Est. Creatinine Clearance* 38.23; Estimated Glomerular Filt Rate 61 ml/min
[2024-04-16 19:37] LABS: Alanine Aminotransferase* 13 U/L (4-35); Alkaline Phosphatase* 63 U/L (40-150); Anion Gap 13 mEq/L (7-15); Aspartate Amino Transferase* 23 U/L (12-35); Blood Urea Nitrogen* 27 mg/dL (7-30); Carbon Dioxide* 20 mmol/L (20-32); D Dimer Quantitative* 1.64 ug/ml (0.00-0.50); Glucose* 105 mg/dL (60-115); Lipase* 112 U/L (23-300); Total Protein* 7.7 g/dL (6.0-8.3)
[2024-04-16 19:38] LABS: Calcium* 9.4 mg/dL (8.4-10.6)
[2024-04-16 19:43] LABS: C Reactive Protein* < 0.5 mg/dL (0.5-1.0); Slide Review Reflex No
[2024-04-16 19:51] LABS: NT Pro B Type NatriureticPept* 66 pg/mL; Troponin I* < 0.01 ng/mL (0.01-0.04)
[2024-04-16 20:00] VITALS: O2SAT 97
[2024-04-16 20:49] VITALS: BP 132/74; PULSE 74; RESP 18; TEMP 36.5; O2SAT 97
[2024-04-16 21:17] VITALS: BP 132/74; PULSE 74; RESP 18; TEMP 36.5
== END 2024-04-16 21:17 | disposition home or self-care (01) ==
PROVIDERS: Emergency Provider Family Medicine; PCP Family Medicine
DX: S20.222A Contusion of left back wall of thorax, initial encounter (principal); R07.1 Chest pain on breathing; R07.89 Other chest pain; R42 Dizziness and giddiness; E87.1 Hypo-osmolality and hyponatremia; W01.198A Fall on same level from slipping, tripping and stumbling with subsequent striking against other object, initial encounter; Y92.520 Airport as the place of occurrence of the external cause; R94.31 Abnormal electrocardiogram [ECG] [EKG]
CPT/HCPCS: 36415; 71275; 80053; 82565; 83690; 83880; 84484; 85025; 85379; 86140; 93005; 94761; 96374; 99284; 99285; J1885; Q9967